=== PATIENT | female | born 1965 | race African-American/Black ===

== ENCOUNTER 2024-05-12 18:25 | Emergency (ER) | payer MEDICAID ==
[~2024-05-12] VITALS: Ht 167.6 cm; Wt 90.2 kg
[2024-05-12] MEDS ORDERED: IBUP1TAB5 PO (19:36)
[2024-05-12] MEDS ORDERED: CLIN1CAP70 PO (19:36)
[2024-05-12] MEDS ORDERED: BACDST PO (19:36)
[2024-05-12] MEDS ORDERED: ACET-1304 PO (19:36)
[2024-05-12 19:55] LABS: Basophils # (auto) 0 10 ^3/uL (0-0.2); Basophils % (auto) 0.6 % (0.0-2.0); Eosinophils # (auto) 0.1 10 ^3/uL (0-0.8); Eosinophils % (auto) 1.4 % (0.0-7.0); Hematocrit 39.7 % (36.0-46.0); Hemoglobin 12.9 g/dL (12.2-16.2); Lymphocytes # (auto) 2.2 10 ^3/uL (0.4-5.4); Lymphocytes % (auto) 29.9 % (10.0-50.0); Mean Corpuscular Hemoglobin 27.1 pg (28.0-32.0); Mean Corpuscular Hgb Conc. 32.5 g/dL (32.0-36.0); Mean Corpuscular Volume 83.5 fL (80.0-100.0); Monocytes # (auto) 0.6 10 ^3/uL (0-1.3); Monocytes % (auto) 8.5 % (0.0-12.0); Neutrophils # (auto) 4.5 10 ^3/uL (1.6-8.6); Neutrophils % (auto) 59.6 % (37.0-80.0); Nucleated Red Blood Cells % 0.1 %; Platelet Count (auto) 204 10^3/uL (140-450); Red Blood Cells 4.76 10^6/uL (4.0-5.20); Red Cell Distribution Width 15.6 % (11.8-14.3); White Blood Cell 7.5 10^3/uL (4.4-10.8)
[2024-05-12 20:05] LABS: Chloride 107 mmol/L (98-107); Potassium 3.6 mmol/L (3.5-5.1); Sodium 142 mmol/L (136-145)
[2024-05-12 20:06] LABS: Anion Gap 4 (5-15); Calcium 9.6 mg/dL (8.7-10.4); Carbon Dioxide 31 mmol/L (20-30)
[2024-05-12 20:11] LABS: BUN/Creatinine Ratio 8.6 (10.0-20.0); Blood Urea Nitrogen 8 mg/dL (9-23); Glucose 105 mg/dL (74-106)
[2024-05-13 00:05] VITALS: BP 153/92; TEMP 98.1
[2024-05-13] MEDS: CLINDAMYCIN 900MG IV 50 ML IV ONE (00:32)
[2024-05-13 00:44] VITALS: PULSE 75; RESP 16; O2SAT 96
== END 2024-05-13 02:03 | disposition home or self-care (01) ==
LOC: ER 18:25
DX: I10 Essential (primary) hypertension (principal); N61.1 Abscess of the breast and nipple; Z79.1 Long term (current) use of non-steroidal anti-inflammatories (NSAID); Z79.899 Other long term (current) drug therapy
CPT/HCPCS: 36415; 76642; 80048; 83605; 85025; 96365; 99285; J3490